=== PATIENT | male | born 1995 ===

== ENCOUNTER 2017-10-05 11:21 | Emergency (ER) | payer OTHER ==
--- NOTE | 2017-10-05 12:14 | UC ---
Skin Complaint HPI - HPI Summary HPI Summary: Pt presents for follow up of right groin abscess. He tells me that he was in [place] on vacation and noticed some redness and swelling to his right groin. He let it go for a few days before going to the hospital in [facility]. They told him it was an abscess, drained it, and placed him on Bactrim. He took this for 3-4 days, but began having increased redness and swelling going down his right thigh. At this point he was back home on [address] - he then again went to the local hospital. They drained it again and admitted him for IV antibiotics. He was discharged on Saturday with a po rx for Bactrim for 14 days. He has been doing well since that time. No complaints. No more drainage, redness, swelling, or pain. - History of Current Complaint Chief Complaint: UCSkin Time Seen by Provider: 10/05/17 12:08 Stated Complaint: RE-CHECK SKIN COMPLAINT Hx Obtained From: Patient Timing: Constant Current Severity: None Pain Intensity: 0 - Allergy/Home Medications Allergies/Adverse Reactions: Allergies Allergy/AdvReac Type Severity Reaction Status Date / Time No Known Allergies Allergy Verified 10/05/17 12:05 Home Medications: Home Medications Sulfamethox/Trimethoprim DS* [Bactrim DS 800/160 TAB*] 2 tab PO BID 10/05/17 [ History Confirmed 10/05/17] Review of Systems Constitutional: Negative Skin: Other - Abscess right groin Respiratory: Negative Cardiovascular: Negative Neurological: Negative Psychological: Negative All Other Systems Reviewed And Are Negative: Yes PMH/Surg Hx/FS Hx/Imm Hx Previously Healthy: Yes - Surgical History Surgical History: None - Family History Known Family History: Positive: None - Social History Occupation: Student Lives: Dormitory/Roommates Alcohol Use: Weekly Substance Use Type: None Smoking Status (MU): Current Every Day Smoker Type: Smokeless Tobacco Amount Used/How Often: 1 can per week Length of Time of Smoking/Using Tobacco: since age 18 Have You Smoked in the Last Year: Yes Physical Exam - Summary Physical Exam Summary: GENERAL: NAD. WDWN. No pain distress. SKIN: Right inguinal canal there is a 2.0cm area of firmness with two separate < 1.0cm incisions. No erythema, drainage, fluctuance, pain, or induration. NECK: Supple. Nontender. No lymphadenopathy. CHEST: CTAB. No r/r/w. No accessory muscle use. Breathing comfortably and in no distress. CV: RRR. Without m/r/g. Pulses intact. Brisk cap refill. NEURO: Alert. CN II-XII grossly intact. PSYCH: Age appropriate behavior. Triage Information Reviewed: Yes Vital Signs: Initial Vital Signs Temp 98.5 F 10/05/17 11:50 Pulse 74 10/05/17 11:50 Resp 14 10/05/17 11:50 BP 128/55 10/05/17 11:50 Pulse Ox 100 10/05/17 11:50 Course/Dx - Course Course Of Treatment: Right groin abscess - healing well. Continue Bactrim. F/u prn. - Diagnoses Provider Diagnoses: Right groin abscess Discharge - Sign-Out/Discharge Documenting (check all that apply): Discharge - Discharge Plan Condition: Stable Disposition: HOME Patient Education Materials: Abscess (ED) Forms: *School Release Referrals: No Primary Care Phys,NOPCP [Primary Care Provider] - Additional Instructions: If you develop a fever, shortness of breath, chest pain, new or worsening symptoms - please call your PCP or go to the ED. - Billing Disposition and Condition Condition: STABLE Disposition: HOME
== END 2017-10-05 12:23 | disposition home or self-care (01) ==
LOC: UCCORT 11:21
DX: Z51.89 Encounter for other specified aftercare (principal); L02.214 Cutaneous abscess of groin; F17.210 Nicotine dependence, cigarettes, uncomplicated
CPT/HCPCS: 99201; G0463